=== PATIENT | female | born 1965 | race Caucasian/White ===

== ENCOUNTER 2016-11-14 07:20 | Outpatient (CLI) | payer OTHER ==
--- NOTE | 2016-11-14 08:25 | Mammography Report ---
BILATERAL MAMMOGRAM: FINDINGS: There are scattered fibroglandular densities (approximately 25%-50% glandular). No mass, distortion, suspicious calcification, or skin change is seen. There are no significant changes prior study of September 2014. CAD was utilized. IMPRESSION: Negative mammogram. There is no mammographic evidence of malignancy. RECOMMENDATION: Follow-up per ACS guidelines. BI-RADS CATEGORY: 1 = Negative ACR BI-RADS MAMMOGRAPHIC CODES: 0 = Needs additional imaging evaluation; 1 = Negative; 2 = Benign; 3 = Probably benign; 4 = Suspicious; 5 = Malignant; 6 = Known biopsy-proven malignancy COMMENT: 1. Dense breast tissue, i.e., adenosis, fibrocystic changes, etc., may obscure an underlying neoplasm. 2. Approximately 10% of cancers are not detected with mammography. 3. A negative mammography report should not delay biopsy if a clinically suspicious mass is present. COMMENT: Patient follow-up letters are generated in [employer].
== END 2016-11-14 07:21 | disposition home or self-care (01) ==
LOC: MAMMO 07:20
PROVIDERS: ATTEND Obstetrics & Gynecology
DX: Z12.31 Encounter for screening mammogram for malignant neoplasm of breast (principal)
CPT/HCPCS: 77067; G0202

== ENCOUNTER 2017-11-25 07:14 | Outpatient (CLI) | payer OTHER ==
--- NOTE | 2017-11-25 08:37 | Mammography Report ---
Bilateral mammogram: Compared to 11/14/16 and 11/02/15. CAD study utilized. Findings: Scattered lingular parenchyma bilaterally. Lobulated 5 mm circumscribed density upper inner anterior left breast. No microcalcifications. Normal axilla. Impression: Lobulated density left breast. Recommend spot mag and sonographic examination. BI-RADS CATEGORY: 0 = Needs additional imaging evaluation ACR BI-RADS MAMMOGRAPHIC CODES: 0 = Needs additional imaging evaluation; 1 = Negative; 2 = Benign; 3 = Probably benign; 4 = Suspicious; 5 = Malignant; 6 = Known biopsy-proven malignancy COMMENT: 1. Dense breast tissue, i.e., adenosis, fibrocystic changes, etc., may obscure an underlying neoplasm. 2. Approximately 10% of cancers are not detected with mammography. 3. A negative mammography report should not delay biopsy if a clinically suspicious mass is present. COMMENT: Patient follow-up letters are generated in [employer].
== END 2017-11-25 07:15 | disposition home or self-care (01) ==
LOC: MAMMO 07:14
PROVIDERS: ATTEND Obstetrics & Gynecology
DX: Z12.31 Encounter for screening mammogram for malignant neoplasm of breast (principal)
CPT/HCPCS: 77067

== ENCOUNTER 2017-12-09 10:26 | Outpatient (CLI) | payer OTHER ==
--- NOTE | 2017-12-10 09:15 | Mammography Report ---
LEFT DIGITAL DIAGNOSTIC MAMMOGRAM : 12/09/17 10:26:00 CLINICAL: Recalled for asymmetries. COMPARISON:11/25/17 screening FINDINGS: Additional mammographic views were performed and are negative. IMPRESSION: Negative Mammogram. BI-RADS CATEGORY: 1 -- Negative RECOMMENDATION: Routine mammographic screening in one year. ACR BI-RADS MAMMOGRAPHIC CODES: 0 = Needs additional imaging evaluation; 1 = Negative; 2 = Benign; 3 = Probably benign; 4 = Suspicious; 5 = Malignant; 6 = Known biopsy-proven malignancy COMMENT: 1. Dense breast tissue, i.e., adenosis, fibrocystic changes, etc., may obscure an underlying neoplasm. 2. Approximately 10% of cancers are not detected with mammography. 3. A negative mammography report should not delay biopsy if a clinically suspicious mass is present. COMMENT: Patient follow-up letters are generated via our [employer] application.
== END 2017-12-09 10:27 | disposition home or self-care (01) ==
LOC: MAMMO 10:26
PROVIDERS: ATTEND Obstetrics & Gynecology
DX: R92.8 Other abnormal and inconclusive findings on diagnostic imaging of breast (principal)

== ENCOUNTER 2018-12-28 13:25 | Outpatient (CLI) | payer OTHER ==
--- NOTE | 2018-12-28 14:35 | Mammography Report ---
BILATERAL DIGITAL DIAGNOSTIC MAMMOGRAM with CAD and LEFT BREAST ULTRASOUND: 12/28/18 CLINICAL: Cyclical left breast pain. COMPARISON:12/09/17 FINDINGS: The breasts are heterogeneously dense, which may obscure small masses.No mass, architectural distortion or suspicious calcifications. Ultrasound of the left breast (including all four quadrants and the retroareolar area) demonstrated normal fibroglandular and fatty structures. No mass, cyst or shadowing. IMPRESSION: Negative bilateral mammogram and negative left breast ultrasound. No explanation for left breast pain. BI-RADS CATEGORY: 1 -- Negative RECOMMENDATION: Clinical followup and routine mammographic screening in one year. COMMENT: Patient follow-up letters are generated by our [employer] application.
== END 2018-12-28 13:26 | disposition home or self-care (01) ==
LOC: MAMMO 13:25
PROVIDERS: ATTEND Obstetrics & Gynecology
DX: N64.4 Mastodynia (principal)
CPT/HCPCS: 77066

== ENCOUNTER 2019-02-22 10:06 | Outpatient (CLI) | payer OTHER ==
[2019-02-22 11:17] LABS: Blood Urea Nitrogen 13 mg/dL (7-17)
--- NOTE | 2019-02-22 15:04 | Cat Scan Report ---
CT PELVIS WITH CONTRAST HISTORY: PELVIC MASS RIGHT LOWER QUADRANT/MALIGNANT NEOPLASM OF SIGMOID.. COMPARISON: None at this facility TECHNIQUE: CT images of the pelvis were obtained following administration of intravenous contrast. Sa gittal and coronal reformatted images. All CT scans at this location are performed using CT dose redu ction for ALARA by means of automated exposure control. CONTRAST: 100 ml of intravenous contrast administered. FINDINGS: A surgical suture line is identified in the sigmoid colon. There is no evidence for recurrent mass or inflammation in this area. The visualized bowel loops in the pelvis are unremarkable. The appendix i s not identified, correlate for appendectomy. The uterus, ovaries and bladder are unremarkable. The v ascular structures are patent. No suspicious bony lesions are identified. No evidence for adenopathy, free fluid or inflammatory changes. Previous ventral wall hernia repair is partially imaged but appears intact. IMPRESSION: Unremarkable exam. No evidence for recurrent or metastatic disease. Signer Name: Stephen Santana Jr, MD Signed: 02/22/2019 2:59 PM Workstation Name: [id number]
== END 2019-02-22 10:07 | disposition home or self-care (01) ==
LOC: CT 10:06
PROVIDERS: ATTEND Obstetrics & Gynecology
DX: C18.7 Malignant neoplasm of sigmoid colon (principal); R19.03 Right lower quadrant abdominal swelling, mass and lump
CPT/HCPCS: 36415; 72193; 82565; 84520; Q9967

== ENCOUNTER 2019-06-28 05:44 | Day surgery (SDC) | payer OTHER ==
--- NOTE | 2019-06-27 17:51 | History and Physical Report ---
History of Present Illness Date of examination: 06/23/19 Chief complaint: Postmenopausal bleeding with superficial endometrial tissue on EMB and thickened endometrium and persistent pelvic mass. History of present illness: Past History : 1 Ectopics: 1 WH[employer] History Operations: salpingectomy(1991) dx [facility] fertility eval 1995- blocked remaining tube Appendectomy Colon Resection: (2006) for colon cancer Dr. Iam Martinez umbilical hernia repair 2007 Abnormal PAP: positive Uterine Anomaly: positive fibroids Infection History HIV Risk Eval: no Hx of STD: HSV Current Allergies (reviewed today): No known allergies Past Medical History: Reviewed history from 11/18/2017 and no changes required: fibroids h/o Colon Cancer Dr. Gonzalez (GI) Pulido negative hiatal hernia Past Surgical History: Reviewed history from 11/18/2017 and no changes required: salpingectomy(1991) dx [facility]sc fertility eval 1995- blocked remaining tube Appendectomy Colon Resection: (2006) for colon cancer Dr. Iam Martinez umbilical hernia repair 2007 Family History Summary: Reviewed history Last on 12/22/2018 and no changes required:06/27/2019 Father (biol.) - Has Family History Colon Cancer - Entered On: 10/11/2017 Other family member - Has No Family History of Biliary Tract Cancer - Entered On: 10/11/2017 Other family member - Has No Family History of Breast Cancer - Entered On: 10/11/2017 Other family member - Has No Family History of Brain Cancer - Entered On: 10/11/2017 Other family member - Has No Family History of Spontaneous DVT-PE - Entered On: 10/11/2017 Other family member - Has No Family History of Kidney/Urinary Tract Cancer - Entered On: 10/11/2017 Other family member - Has No Family History of Ovarvian Cancer - Entered On: 10/11/2017 Other family member - Has No Family History of Pancreatic Cancer - Entered On: 10/11/2017 Other family member - Has No Family History of Stomach Cancer - Entered On: 10/11/2017 Other family member - Has No Family History of Small Bowel Cancer - Entered On: 10/11/2017 Other family member - Has No Family History of Uterine Cancer - Entered On: 10/11/2017 General Comments - FH: Family History Colon Cancer-father No Family History of Breast Cancer No Family History of Ovarian Cancer Family History of Diabetes MGF, maternal aunt, sister and several cousins Social History: Reviewed history from 11/07/2016 and no changes required: Patient is Smoking History: Patient has never smoked. Risk Factors: Smoked Tobacco Use: Never smoker Smokeless Tobacco Use: Never Passive smoke exposure: no Drug use: no HIV high-risk behavior: no Caffeine use: 0 drinks per day Alcohol use: no Exercise: no Seatbelt use: 100 % Previous Tobacco Use: Signed On 04/18/2019 Smoked Tobacco Use: Never smoker Smokeless Tobacco Use: Never Passive smoke exposure: no Drug use: no HIV high-risk behavior: no Previous Alcohol Use: Signed On 04/18/2019 Alcohol use: no Exercise: no Seatbelt use: 100 % Colonoscopy History: Date of Last Colonoscopy: 08/25/2012 Mammogram History: Date of Last Mammogram: 12/28/2018 PAP Smear History: Date of Last PAP Smear: 12/22/2018 Physical Exam Appearance: well developed, well nourished, no acute distress Other Exams Lungs: no rales, rhonchi, or wheezes Heart: S1, S2, no murmur, rub, or gallop Abdomen: soft, non-tender, no masses Genitourinary Exam Uterus: deferred for EUA Impression & Recommendations: Problem # 1: Postmenopausal Bleeding (ICD-627.1) (YVB08-S49.0) She desires minimal conservative surgical intervention in the form of hysteroscopy with D&C, she declines hysterectomy at this time. Therefore she's aware her bleeding my recur Problem # 2: Pelvic mass, Right lower quadrant (ICD-789.33) (KYA71-J54.03) Consent reviewed and signed . Possible laparoscopy or laparotomy explained to patient. The risks and alternatives for this surgery were reviewed with the patient. She was informed of possible bleeding, infection, injury to bowel, bladder, ureters or other adjacent organs. She aware that by her evaluation the mass is probably benign. It was emphasized she's at increased risk for complications d/t multiple previous abdominal surgeries. She's very anxious to have the mass removed just tht same. The patient was instructed/informed the following: The normal length of hospital stay for this procedure. Nothing to eat or drink after midnight the evening prior to surgery. Clear liquids the day before surgery. Fleets enema the day prior to surgery. Pre-op instruction sheets given. Wound care instructions given. Infection precautions reviewed, patient to call for any signs or symptoms of infection. The usual discomforts associated with this procedure were detailed. Proper use of pain medicines was reviewed. Patient was given ample opportunity to have all her questions answered before signing informed consent. Problem # 3: LEIOMYOMA, UTERUS (ICD-218.0) ([id number]-R60.0) She's aware the fibroid will most likely not removed at this time. Medications and Allergies Allergies Allergy/AdvReac Type Severity Reaction Status Date / Time No Known Allergies Allergy Unverified 10/05/14 07:24 Home Medications Medication Instructions Recorded Confirmed Last Taken Type No Known Home Medications [No 06/22/19 06/22/19 Unknown History Reported Home Medications] Active Meds: Active Medications Celecoxib (Celebrex) 200 mg PO PREOP NR Stop: 06/28/19 23:59 Gabapentin (Gabapentin) 300 mg PO PREOP NR Stop: 06/28/19 23:59 Lactated Ringer's (Lactated Ringers) 1,000 mls @ 100 mls/hr IV DIRECT MARIA EUGENIA Midazolam HCl (Versed) 2 mg IV PREOP NR Stop: 06/28/19 23:59 Assessment and Plan - Patient Problems (1) Pelvic mass Status: Chronic (2) Postmenopausal bleeding Status: Acute
[~2019-06-28 05:44] MED LIST: LACTATED RINGERS 1,000 ML IV SCH; ceFAZolin/Water 2 GM/20 ML 2 GM/20 ML SYRINGE IV NR
[2019-06-28] MEDS ORDERED: GABAPENTIN 300 MG CAP PO NR (06:00)
[2019-06-28] MEDS ORDERED: MIDAZOLAM 2 MG/2 ML INJ IV NR (06:00)
[2019-06-28] MEDS ORDERED: CELECOXIB 200 MG CAP PO NR (06:00)
[2019-06-28] MEDS ORDERED: BACTERIOSTATIC SODIUM CHLORIDE 0.9% 30 ML VIAL INFILTRATI ONE (06:22)
[2019-06-28] MEDS ORDERED: PROPOFOL 200 MG/20 ML VIAL IV ONE (07:15)
[2019-06-28] MEDS ORDERED: HYDROmorphone 1 MG/1 ML INJ ONE ×2 (07:15→10:36)
[2019-06-28] MEDS ORDERED: LIDOCAINE MPF (2%) 20 MG/1 ML VIAL 5 ML ONE (07:15)
[2019-06-28] MEDS ORDERED: ROCURONIUM 50 MG/5 ML INJ IV ONE ×2 (07:16→09:29)
--- NOTE | 2019-06-28 07:30 | Anesthesia Consultation ---
Anesthesia Consult and Med Hx Date of service: 06/28/19 - Airway Anesthetic Teeth Evaluation: Good ROM Head & Neck: Adequate Mental/Hyoid Distance: Adequate Mallampati Class: Class II Intubation Access Assessment: Good - Pulmonary Exam CTA: Yes - Cardiac Exam Cardiac Exam: RRR - Pre-Operative Health Status ASA Pre-Surgery Classification: ASA2 Proposed Anesthetic Plan: General (obesity , remote hx of colon Ca ) - Central Nervous System Hx Psychiatric Problems: No - Other Systems Hx Cancer: Yes
[2019-06-28] MEDS ORDERED: HYDROmorphone 1 MG/1 ML INJ IV PRN (07:31)
[2019-06-28] MEDS ORDERED: ONDANSETRON 4 MG/2 ML INJ IV PRN (07:31)
--- NOTE | 2019-06-28 07:31 | Anesthesia Day of Surgery ---
Anesthesia Day of Surgery - Day of Surgery Patient Examined: Yes Patient H&P Reviewed: Yes Patient is NPO: Yes
[2019-06-28] MEDS ORDERED: NEOMY 40 MG/POLYMYXIN B 200,000 UNITS/ML (GU) AMPULE IR ONE (07:33)
[2019-06-28] MEDS ORDERED: BUPIVACAINE/PF (0.5%) 5 MG/1 ML 30 ML VIAL INFILTRATI ONE ×2 (08:08→09:58)
[2019-06-28] MEDS ORDERED: dexAMETHasone 20 MG/5 ML VIAL ONE (08:12)
[2019-06-28] MEDS ORDERED: METOCLOPRAMIDE 10 MG/2 ML INJ ONE (08:12)
[2019-06-28] MEDS ORDERED: ONDANSETRON 4 MG/2 ML INJ ONE (08:12)
[2019-06-28 09:15] LABS: Hematocrit 40.3 % (30.3-42.9); Hemoglobin 13.4 gm/dl (10.1-14.3); Mean Corpuscular HGB Conc 33 % (30-34); Mean Corpuscular Volume 94 fl (79-97); Red Blood Count 4.29 M/mm3 (3.65-5.03)
[2019-06-28 09:16] LABS: Platelet Count 282 K/mm3 (140-440); Red Cell Distribution Width 13.5 % (13.2-15.2)
[2019-06-28] MEDS ORDERED: LACTATED RINGERS 1,000 ML ONE (09:46)
[2019-06-28] MEDS ORDERED: KETOROLAC 30 MG/1 ML INJ ONE (09:50)
[2019-06-28] MEDS ORDERED: SODIUM CHLORIDE 0.9% IRRIG SOLN 2000 ML IR ONE (09:58)
[2019-06-28] MEDS ORDERED: SODIUM CHLORIDE 0.9% IRR 1,500 ML BOTTLE IR ONE (09:58)
--- NOTE | 2019-06-28 10:00 | Event Note ---
Date: 06/28/[address] Almendarez's op note for complete details. I came in to check for any signs of bowel injury near the port sites. Everything looked good.
[2019-06-28] MEDS ORDERED: GLYCOPYRROLATE 0.4 MG/2 ML INJ ONE ×2 (10:24)
[2019-06-28] MEDS ORDERED: NEOSTIGMINE 10MG/10 ML INJ MDV ONE (10:24)
[2019-06-28] MEDS ORDERED: FERRIC SUBSULFATE TOPICAL SOLN 8 ML TP ONE (10:30)
[2019-06-28] MEDS ORDERED: SILVER NITRATE APPLICATOR 1 EA TP ONE ×2 (10:30→10:33)
--- NOTE | 2019-06-28 11:06 | Discharge Summary ---
Providers - Providers Date of discharge: 06/28/19 Attending physician: BEATA JAY Primary care physician: HEALTH CARE SANITARY TECHNICIAN Hospitalization Condition: Good Procedures: Hysteroscopy D&C with polypectimy Robot assisted laparoscopic (R) salpingectomy, YAYO and myomectomy Hospital course: normal Disposition: DC-01 TO HOME OR SELFCARE - Discharge Diagnoses (1) Pelvic mass Status: Resolved (2) Postmenopausal bleeding Status: Acute Core Measure Documentation - Palliative Care Palliative Care/ Comfort Measures: Not Applicable - Core Measures Any of the following diagnoses?: none Exam - Constitutional Vitals: Temp Pulse Resp BP Pulse Ox 98.7 F 80 16 111/73 97 06/28/19 06:50 06/28/19 06:50 06/28/19 06:50 06/28/19 06:50 06/28/19 06:50 General appearance: Present: no acute distress - Respiratory Respiratory effort: normal - Cardiovascular Rhythm: regular - Extremities Extremities: no ischemia, No edema - Integumentary Integumentary: Present: clear, warm, dry - Psychiatric Psychiatric: appropriate mood/affect, intact judgment & insight, memory intact, cooperative Plan Activity: other (no sex. no driving, ambulate ~1mile on your property a day. Do not leave your property except for MD visits. Void frequently. ) Weight Bearing Status: Full Weight Bearing Diet: regular Wound: open to air, keep clean and dry Special Instructions: no heavy lifting (Greater than 25lbs) Care Plan Goals: Full recovery and resolution of postmenopausal bleeding Plan of Treatment: Avoid VTE, infection and any other postop complications Health Concerns: Sleep apnea, obesity Follow up with: PRIMARY MD DAGMAR [Primary Care Provider] - 7 Days BEATA JAY MD [Staff Physician] - (As scheduled) Prescriptions: Ibuprofen [Motrin 800 MG tab] 800 mg PO Q8HR PRN #30 tablet PRN Reason: Pain, Moderate (4-6) oxyCODONE /ACETAMINOPHEN [Percocet 5/325 mg] 1 tab PO Q6HR PRN #10 tablet PRN Reason: Pain
[2019-06-28 11:53] VITALS: BP 141/68
--- NOTE | 2019-06-28 12:53 | Post Anesthesia Evaluation ---
- Post Anesthesia Evaluation Patient Participated: Yes Airway Patent: Yes Stable Respiratory Function: Yes Nausea/Vomiting: No Temp > 96.8F: Yes Pain Manageable: Yes Adequeate Hydration: Yes Anesthesia Complications: No Block Receding Appropriately: Not Applicable Patient on Ventilator: No
--- NOTE | 2019-06-28 14:02 | Post Operative Note ---
Pre-op diagnosis: Pelvic mass, postmenopausal bleeding Post-op diagnosis: same (endometrial polyp, abdominal and pelvic adhesions, fibroids, (R) hydrosalpinx) Findings: endometrial polyp, abdominal and pelvic adhesions, fibroids, (R) hydrosalpinx Procedure: hysteroscopy D&C, polypectomy, robot assisted YAYO with right salpingectomy and myomectomy Anesthesia: GETA Surgeon: BEATA JAY (Angelina Gloria) Estimated blood loss: minimal Specimen disposition: to lab Condition: stable Disposition: PACU
[2019-06-28] MEDS ORDERED: oxyCODONE /ACETAMINOPHEN 5-325MG TAB PO PRN (14:30)
--- NOTE | 2019-06-29 09:13 | Operative Report ---
Operative Report Operative Report: Date: 06/28/2019 Preoperative diagnosis: 1. Postmenopausal bleeding 2. Pelvic mass 3. Body mass index of 40 kg/m 4. Fibroids Postoperative diagnosis: 1. Postmenopausal bleeding 2. Pelvic mass: right hydrosalpinix 3. Body mass index of 40 kg/m 4. Fibroids 5. Pelvic and abdominal adhesions Procedure: 1. Robotic-assisted laparoscopic right salpingectomy 2. Lysis of pelvic adhesions 3. Myomectomy 4. Hysteroscopy with dilation and curettage and polypectomy Surgeon: Angie Almendarez MD Aircraft Electronics Technical Officer: Angelina Gloria Anesthesiologist: Dr. Bhandari Anesthesia: General endotracheal anesthesia EBL: Approximately 50 mL Findings: Uterus was sounded to 10 cm. Small right medial pedunculated fibroid on the round ligament, ~5cm left subserosal fibroid involving the broad ligament. Upper abdominal adhesions of the omentum to the anterior abdominal wall. in the midline and on the left and left lower quadrant. Right hydrosalpinx, Posterior uterine adhesions. Absent left fallopian tube. Grossly normal ovaries. Procedure: Patient was taken to the OR and placed in the supine position. General anesthesia was induced and an oral gastric tube was placed. Her neck and head were placed on foam support. Foam eye protection with goggles were secured in place. Then foam face protection was placed and secured. Foam shoulder pads were then positioned on her shoulders for Trendelenburg positioning. She was then placed in dorsolithotomy position. Exam under anesthesia unremarkable, however difficult to palpate due to body mass index. The abdomen and vagina were then prepped and draped in the usual sterile fashion. Timeout was performed. A Torres catheter was inserted into the bladder with drainage of clear yellow urine. The operative speculum was introduced into the vagina and the anterior lip of the cervix was grasped with single-toothed tenaculum. The uterus was sounded to 10 cm. The cervix was progressively dilated to allow the operative hysteroscope. The uterine cavity was thick with polyps noted. Uterine curettage was then performed. The hysteroscope was introduced again into the cavity of the uterus. No obvious evidence of perforation was noted. The cavity appear clear of any pathology Hemostasis was noted. The procedure was ended. The cervix was progressively dilated to allow the [employer] V Signature uterine manipulator. The bulb of the manipulator was inflated and the speculum and tenaculum were removed. The cup of the manipulator was placed around the cervix and the blue occluder of the manipulator was properly positioned in the vagina. . Sterile gloves were placed and attention was turned to the abdomen. A 10 mm midline vertical supraumbilical incision was made approximately 10 cm superior to the superior to the umbilicus. A 12 mm trocar with the laparoscope and camera attached was introduced through this incision under direct visualization. The abdomen was insufflated. No obvious bowel, bladder, ureteral, or major vascular injury was noted. Under direct visualization, a 12mm trocar was placed through an incision made in the right lower lateral pelvis. The laparoscope was placed through the lateral trocar. At this point the omental adhesions were noted, with the 12 mm midline trocar through the adhesions however no bowel was involve and no bleeding was noted. The patient was then placed in steep Trendelenburg position and the following trochars were placed under direct visualization: 8 mm robotic trochars were placed through incisions made in the bilateral midclavicular lower abdominal region approximately 10 cm lateral to the midline incision. Once the trochars were in the appropriate positions, the da Bud robot system was engaged. The EndoShears and bipolar device was placed through the 8 mm trochars and positio sara then attention was turned to the console. The left lower quadrant adhesions were released with no obvious evidence of bowel injury.The uterus was elevated and the posterior adhesions were released allowing better visualization of the cul-de-sac. The right hydrosalpinx was noted and the tube was excised and removed through the 12 mm lateral trocar intact. The small right fibroid was excised and also removed through the right trocar. As discussed during multiple previous visits and at her preop appointment the subserosal fibroid was left intact. The pelvis was irrigated with warm normal saline. Hemostasis was noted. Interceed was applied to the operative field. Dr. Washburn presented for a intraoperative consultation. Then the instruments were removed, the robot was disengaged. After his inspection of the bowel and abdominal cavity, the decision was made to end the procedure. Again with direct visualization using the laparoscope, the fascia of the 10mm incisions were ligated using the Alvaro-Sutherland fascial closure device and 0 vicryl. The patient was taken out of Trendelenburg position, the abdomen was desufflated, the remaining trochars were removed. The subcutaneous adipose tissue of the 10mm incisions were approximated using 0 vicryl. Then the incisions were reapproximated using 4-0 Monocryl in a subcuticular manner. . The incisions were infused with Marcaine 0.5% with epinephrine . Surgiseal was placed over the other incisions. The vagina and cervix were then inspected, the laceration on the cervix was made hemostatic with a 0 vicyrl and Monsel solu tion was applied to the distal right vaginal laceration. Clear yellow urine was draining into the Torres bag from the bladder at the end of the procedure. The catheter was removed. Counts were correct 3.Patient was taken to recovery room in stable condition.
== END 2019-06-28 05:45 | disposition home or self-care (01) ==
LOC: OR 05:44
PROVIDERS: ATTEND Obstetrics & Gynecology
DX: N95.0 Postmenopausal bleeding (principal); D25.0 Submucous leiomyoma of uterus; N84.0 Polyp of corpus uteri; R19.09 Other intra-abdominal and pelvic swelling, mass and lump; N83.8 Other noninflammatory disorders of ovary, fallopian tube and broad ligament
CPT/HCPCS: 36415; 58545; 58558; 58661; 81025; 85027; 86850; 86900; 86901; 88305; A4217; C1765; J0690; J1100; J1170; J1885; J2250; J2405; J2704; J2710; J2765; J7120; S2900; 88302

== ENCOUNTER 2020-01-30 09:52 | Outpatient (CLI) | payer OTHER ==
--- NOTE | 2020-01-30 11:03 | Mammography Report ---
DIGITAL SCREENING MAMMOGRAM WITH CAD, 01/30/2020 INDICATION: Routine screening mammography. TECHNIQUE: Digital bilateral 2D mammography was obtained in the craniocaudal and mediolateral obliq ue projections. This examination was interpreted with the benefit of Computer-Aided Detection analysi s. COMPARISON: 11/14/2016. FINDINGS: Breast Density: There are scattered areas of fibroglandular density. There is no evidence of dominant mass, suspicious calcifications or architectural distortion in eithe r breast. IMPRESSION: Follow up recommendation: Routine yearly BI-RADS Category 1: Negative. A "normal" or negative report should not discourage follow up or biopsy of a clinically significant f inding. A written summary of these findings will be mailed to the patient. The patient will be entered into a mammography reporting system which will generate a reminder letter for the patient's next appointmen t at the appropriate interval. The [employer] recommends yearly mammograms starting at age 40 and continuing as l edouard as a woman is in good health. Breast MRI is recommended for women with an approximate 20-25% or greater lifetime risk of breast cancer, including women with a strong family history of breast or ova evelyn cancer or who have been treated for Hodgkin's disease. Signer Name: Haseeb Fuentes MD Signed: 01/30/2020 10:59 AM Workstation Name: [id number]
== END 2020-01-30 09:53 | disposition home or self-care (01) ==
LOC: MAMMO 09:52
PROVIDERS: ATTEND Obstetrics & Gynecology
DX: Z12.31 Encounter for screening mammogram for malignant neoplasm of breast (principal); N64.89 Other specified disorders of breast
CPT/HCPCS: 77067

== ENCOUNTER 2020-10-02 12:06 | Outpatient (CLI) | payer OTHER ==
--- NOTE | 2020-10-02 13:38 | Mammography Report ---
DIGITAL DIAGNOSTIC MAMMOGRAM WITH CAD , 10/02/2020 CLINICAL INFORMATION / INDICATION: Bilateral breast pain TECHNIQUE: Digital bilateral mammographic imaging was performed. This examination was interpreted with the benefit of Computer-aided Detection analysis. COMPARISON: 01/30/2020, 01/27/2019 FINDINGS: Breast Density: There are scattered areas of fibroglandular density. No dominant mass, suspicious calcifications or architectural distortion in either breast. No mammographic correlate for bilateral breast pain. Overall, no interval change. IMPRESSION: No mammographic evidence of malignancy. Clinical correlation recommended for bilateral br east pain. Follow up recommendation: Routine yearly BI-RADS Category 2: Benign. A "normal" or negative report should not discourage follow up or biopsy of a clinically significant f inding. A written summary of these findings will be mailed to the patient. The patient will be entered into a mammography reporting system which will generate a reminder letter for the patient's next appointmen t at the appropriate interval. According to the [employer], yearly mammograms are recommended starting at age 40 and continuing as long as a woman is in good health. Breast MRI is recommended for women with an jess roximately 20-25% or greater lifetime risk of breast cancer, including women with a strong family his tory of breast or ovarian cancer and women who have been treated for Hodgkin's disease. Signer Name: Lizeth Woodson MD Signed: 10/02/2020 1:33 PM Workstation Name: [id number]
== END 2020-10-02 12:07 | disposition home or self-care (01) ==
LOC: MAMMO 12:06
PROVIDERS: ATTEND Obstetrics & Gynecology
DX: N64.4 Mastodynia (principal); R92.8 Other abnormal and inconclusive findings on diagnostic imaging of breast
CPT/HCPCS: 77066

== ENCOUNTER 2022-04-03 12:38 | Outpatient (CLI) | payer OTHER ==
--- NOTE | 2022-04-07 09:39 | Mammography Report ---
DIGITAL SCREENING MAMMOGRAM WITH TOMOSYNTHESIS WITH CAD, 04/03/2022 CLINICAL INFORMATION / INDICATION: Routine Screening Mammography. TECHNIQUE: Digital bilateral 2D and 3D mammography with tomosynthesis was obtained in the craniocauda l and mediolateral oblique projections. Computer-Aided Detection (CAD) analysis was used for interpr etation of this study. COMPARISON: 10/02/2020, 01/30/2020 FINDINGS: Breast Density: There are scattered areas of fibroglandular density. No dominant mass, suspicious calcifications, or architectural distortion in either breast. There has been no significant interval change. IMPRESSION: No mammographic evidence of malignancy. Follow up recommendation: Routine yearly screening mammogram. BI-RADS Category 1: NEGATIVE A "normal" or negative report should not discourage follow up or biopsy of a clinically significant f inding. A written summary of these findings will be mailed to the patient. The patient will be entered into a mammography reporting system which will generate a reminder letter for the patient's next appointmen t at the appropriate interval. The [employer] recommends yearly mammograms starting at age 40 and continuing as l [place]ou[place] as a woman is in good health. Breast MRI is recommended for women with an approximate 20-25% or greater lifetime risk of breast cancer, including women with a strong family history of breast or ova evelyn cancer or who have been treated for Hodgkin's disease. Signer Name: Barrie Dodd MD Signed: 04/07/2022 9:35 AM Workstation Name: [employer]
== END 2022-04-03 12:39 | disposition home or self-care (01) ==
LOC: SPVWC 12:38
PROVIDERS: ATTEND Obstetrics & Gynecology
DX: Z12.31 Encounter for screening mammogram for malignant neoplasm of breast (principal)
CPT/HCPCS: 77063; 77067